=== PATIENT | male | born 1970 | race Caucasian/White ===

== ENCOUNTER 2024-05-19 17:58 | Inpatient (IN) | payer OTHER, SELFPAY ==
[2024-05-19] MEDS ORDERED: ONDANSETRON 4 MG/2 ML VIAL ONE (18:47)
[2024-05-19] MEDS ORDERED: NA CHLORIDE 0.9% 1,000 ML ONE (18:47)
[2024-05-19 19:02] LABS: Absolute Lymphocytes (CBC) 0.5 K/uL (0.7-4.9); Absolute Neutrophil 22.6 K/uL (1.8-8.0); Basophils % 0.1 % (0-1.3); Hematocrit 43.2 % (39.6-49.0); Hemoglobin 14.7 g/dL (13.6-17.9); Lymphocytes % 1.9 % (15.3-44.8); MCH 33.1 pg (27.0-35.0); MCV 97.3 fL (80-100); Monocytes % 4.3 % (3.3-12.3); Neutrophils % 93.7 % (41.7-73.7); Platelets 264 thou/uL (152-406); RBC Red Blood Cell Count 4.44 M/uL (4.33-5.43); Red Cell Distribution Width 13.6 % (12.1-15.2)
[2024-05-19 20:22] LABS: Albumin 2.8 g/dL (3.4-5.0); Albumin/Globulin Ratio 0.8 (1.1-1.8); Anion Gap 11.1 mEq/L (5.0-15.0); Bilirubin Total 0.4 mg/dL (0.2-1.0); Globulin 3.6 g/dL (2.3-3.5); Protein, Total 6.4 g/dL (6.4-8.2)
[2024-05-19 20:32] LABS: Potassium 6.1 mEq/L (3.5-5.1)
[2024-05-19 20:39] LABS: Band Neutrophils 3 % (0-1); Differential Total Cells Count 100; Eosinophils 1 % (0-3); Lymphocytes 2 % (15-42); Monocytes 6 % (0-10); Reactive Lymphocytes 1 %; Segmented Neutrophils 87 % (40-80)
[2024-05-19 20:40] LABS: Blood Morphology Comment NOT SEEN (NOT SEEN); Platelet Estimate ADEQ
[2024-05-19] MEDS ORDERED: ALBUTEROL 2.5 MG/3 ML NEB SOL ONE (21:11)
[2024-05-19] MEDS ORDERED: INSULIN REGULAR (HUMAN) 100 UNIT/ML ONE (21:12)
[2024-05-19] MEDS ORDERED: CALCIUM GLUCONATE 1 GM IVPB 1 GM/50 ML BAG IV ONE (21:12)
[2024-05-19] MEDS ORDERED: D10W 250 ML IV ONE (21:13)
--- NOTE | 2024-05-19 21:15 | RAD REPORT ---
EXAMINATION: CT ABDOMEN AND PELVIS WITHOUT CONTRAST CLINICAL INDICATION: Male, 53 years old.ABD PAIN TECHNIQUE: CT abdomen and pelvis was performed, without IV contrast, as per department protocol. Axia l, sagittal and coronal reconstructions were obtained. One or more of the following dose reduction techniques were used: Automated exposure control, adjustment of the mA and/or kV according to the pat ient size, and/or iterative reconstruction. Unless otherwise specified, incidental findings do not require dedicated imaging follow-up. [id number]. IV CONTRAST: Not administered. COMPARISON: None FINDINGS: The lack of intravenous contrast limits the sensitivity of this exam for evaluation of solid visceral organs, vascular structures, and retroperitoneum. LOWER CHEST: Scarring at the right lung base. Faint groundglass opacities in the left lower lobe. LIVER: Normal in size and contour. No focal lesion. GALLBLADDER/BILE DUCTS: No biliary ductal dilatation.?Corticectomy PANCREAS: No mass, ductal dilation, or nicole-pancreatic fluid. SPLEEN: Normal size. No focal lesion. ADRENALS: Normal; no mass. KIDNEYS AND URETERS: Normal size and contour. No hydronephrosis. URINARY BLADDER: Normal contour. GASTROINTESTINAL TRACT: Ostomy in the left lower quadrant and right lower quadrant. Fluid distended s mall bowel in the lower midline pelvis. No evidence of an overt bowel obstruction. Silva's pouch. PERITONEUM: No free fluid. ABDOMINAL AORTA AND OTHER VESSELS: Normal caliber aorta and IVC. Atherosclerosis. REPRODUCTIVE ORGANS: Mild prostatomegaly. MUSCULOSKELETAL: Surgical of avascular necrosis of the right femoral head. Metallic intensity in the sacrum may be postsurgical or shrapnel. On the turfgrass technician, there is shrapnel in the patient's thorax posteriorly on the right side. ADDITIONAL FINDINGS: None. IMPRESSION: 1. No acute or significant abnormalities in the abdomen or pelvis, with evaluation limited by lack of IV contrast. Some nonspecific fluid distended small bowel is present but no evidence of overt bowel obstruction. Correlate with ostomy output. If bowel obstruction is suspected given the patient' s postoperative state, consider repeat CT with oral and IV contrast. 2. Faint groundglass opacities in left lower lobe could represent mild aspiration pneumonitis in the setting of vomiting.
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
[2024-05-19] MEDS ORDERED: ONDANSETRON 4 MG/2 ML VIAL IV PRN (22:19)
[2024-05-19] MEDS ORDERED: ACETAMINOPHEN 325 MG TABLET PO PRN (22:19)
[2024-05-19] MEDS ORDERED: MORPHINE 2 MG/ML SYR IV PRN (22:22)
[2024-05-19] MEDS ORDERED: HYDROCODONE/APAP 5/325 MG TAB PO PRN (22:22)
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
[2024-05-19] MEDS: NA CHLORIDE 0.9% 1,000 ML IV SCH (23:42)
[2024-05-19] MEDS: SODIUM ZIRCONIUM CYCLOSILICATE 10 GM/PKT PO ONE (23:42)
[2024-05-20] MEDS: PIPER TAZO 3.375 GM in NA CHLORIDE 0.9% 100 ML IV SCH (00:02)
[2024-05-20 00:42] VITALS: BMI 15.2
[2024-05-20 04:39] LABS: Specific Gravity 1.015 (1.005-1.030); Sqamous Epithelial <5 /HPF (None Seen); Urine Bacteria None Seen /HPF (<20); Urine Bilirubin NEGATIVE (Negative); Urine Blood Negative (Negative); Urine Clarity Clear (Clear); Urine Color Light-Yellow (Yellow); Urine Culture Reflex Order NOT NEEDED; Urine Glucose NEGATIVE (Negative); Urine Ketones NEGATIVE (Negative); Urine Microscopic Reflex YN ORDER UMIC; Urine Mucus Slight /HPF (None Seen); Urine Nitrite NEGATIVE (Negative); Urine Protein TRACE (Negative); Urine RBC <5 /HPF (None Seen); Urine Urobilinogen Normal (Normal); Urine WBC <5 /HPF (<5); Urine pH 5.5 (5.0-7.0)
[2024-05-20] MEDS ORDERED: SODIUM CHLORIDE 0.9% 10ML INJ IV PRN (05:59)
[2024-05-20 07:05] LABS: Absolute Eosinophils 0.1 K/uL (0-0.5); Absolute Lymphocytes (CBC) 0.7 K/uL (0.7-4.9); Absolute Monocytes 0.9 K/uL (0.1-1.3); Absolute Neutrophil 14.6 K/uL (1.8-8.0); Eosinophils % 0.3 % (0-4.4); Hematocrit 37.8 % (39.6-49.0); Lymphocytes % 4.4 % (15.3-44.8); MCH 33.3 pg (27.0-35.0); MCHC 34.4 g/dL (32.0-36.0); MCV 96.8 fL (80-100); MPV 8.1 fL (7.6-11.3); Monocytes % 5.6 % (3.3-12.3); Neutrophils % 89.7 % (41.7-73.7); Platelets 235 thou/uL (152-406); Red Cell Distribution Width 13.5 % (12.1-15.2)
[2024-05-20 07:28] LABS: Albumin 2.9 g/dL (3.4-5.0); Albumin/Globulin Ratio 0.8 (1.1-1.8); Anion Gap 12.5 mEq/L (5.0-15.0); Bilirubin Total 0.8 mg/dL (0.2-1.0); Globulin 3.8 g/dL (2.3-3.5); Phosphorus 2.2 mg/dL (2.5-4.9); Potassium 5.5 mEq/L (3.5-5.1); Protein, Total 6.7 g/dL (6.4-8.2)
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
[2024-05-20] MEDS: PANTOPRAZOLE 40 MG INJ IVP SCH (08:01)
[2024-05-20] MEDS: ENOXAPARIN 40 MG/0.4 ML SQ SCH (08:01)
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
[2024-05-20] MEDS ORDERED: D5W 1,000 ML with NA BICARB 8.4% 150 MEQ IV SCH (09:00)
[2024-05-20] MEDS ORDERED: SODIUM BICARB 325 MG TAB PO SCH (09:00)
[2024-05-20] MEDS: SODIUM BICARB 325 MG TAB PO ONE (09:39)
[2024-05-20] MEDS: SODIUM ZIRCONIUM CYCLOSILICATE 10 GM/PKT PO ONE (09:40)
[2024-05-20] MEDS: D5W 1,000 ML with NA BICARB 8.4% 150 MEQ IV SCH (09:40)
[2024-05-20] MEDS: SODIUM PHOSPHATE 15 MM in NA CHLORIDE 0.9% 250 ML IV SCH (09:40)
[2024-05-20] MEDS: NEPRO SHAKE 237 ML CAN PO SCH (09:41)
--- NOTE | 2024-05-20 10:16 | EKG ---
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
[2024-05-20] MEDS: NA CHLORIDE 0.9% 1,000 ML IV ONE (12:08)
[2024-05-20 16:02] LABS: Albumin 2.7 g/dL (3.4-5.0); Anion Gap 11.6 mEq/L (5.0-15.0); Phosphorus 3.2 mg/dL (2.5-4.9)
[2024-05-20 16:03] LABS: Potassium 4.6 mEq/L (3.5-5.1)
[2024-05-21 04:37] LABS: Absolute Eosinophils 0.1 K/uL (0-0.5); Absolute Lymphocytes (CBC) 0.8 K/uL (0.7-4.9); Absolute Monocytes 0.5 K/uL (0.1-1.3); Absolute Neutrophil 6.8 K/uL (1.8-8.0); Basophils % 0.1 % (0-1.3); Eosinophils % 1.2 % (0-4.4); Hematocrit 32.2 % (39.6-49.0); Lymphocytes % 9.7 % (15.3-44.8); MCV 97.1 fL (80-100); MPV 7.7 fL (7.6-11.3); Monocytes % 5.9 % (3.3-12.3); Neutrophils % 83.1 % (41.7-73.7); Platelets 156 thou/uL (152-406); RBC Red Blood Cell Count 3.32 M/uL (4.33-5.43); Red Cell Distribution Width 13.4 % (12.1-15.2)
[2024-05-21 04:50] LABS: Albumin 2.3 g/dL (3.4-5.0); Anion Gap 7.8 mEq/L (5.0-15.0); Potassium 3.8 mEq/L (3.5-5.1); Uric Acid 3.5 mg/dL (3.5-7.2)
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
[2024-05-21] MEDS: POTASS/SODIUM PHOSPHATE 1 PKT POWD.PACK PO SCH ×2 (09:00→15:17)
[2024-05-21] MEDS: CALCITROL 0.25 MCG CAP PO SCH (10:11)
[2024-05-21] MEDS: NA CHLORIDE 0.9% 1,000 ML IV SCH (11:18)
[2024-05-21] MEDS: AMOX/K CLAV 875 MG TAB PO SCH (17:00)
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
--- NOTE | 2024-05-21 19:29 | P.PN ---
Date of Service: 05/21/24 Vital Signs Temp Pulse Resp BP Pulse Ox 98.6 F 78 16 89/53 L 98 05/21/24 16:00 05/21/24 16:00 05/21/24 16:00 05/21/24 16:00 05/21/24 16:00 Medications Acetaminophen (Acetaminophen 325 Mg Tablet) 650 mg PO Q4HP PRN PRN Reason: Pain scale 2-4 (Mild) Hydrocodone Bitart/Acetaminophen (Hydrocodone/Apap 5/325 Mg Tab) 1 tab PO Q4H PRN PRN Reason: Pain scale 5-7 (Moderate) Amoxicillin/Clavulanate Potassium (Amox/K Clav 875 Mg Tab) 875 mg PO BIDWM [facility] Last Admin: 05/21/24 17:00 Dose: Not Given Calcitriol (Calcitrol 0.25 Mcg Cap) 0.5 mcg PO DAILY [facility] Last Admin: 05/21/24 10:11 Dose: 0.5 mcg Enoxaparin Sodium (Enoxaparin 40 Mg/0.4 Ml) 40 mg SQ DAILY [facility] Last Admin: 05/21/24 10:11 Dose: 40 mg Enteral Nutritional Formula (Nepro Shake 237 Ml Can) 240 ml PO TID [facility] Last Admin: 05/21/24 14:00 Dose: Not Given Ergocalciferol (Drisdol (Vitamin D=Ergocalciferol) 33742 Unit Cap) 50,000 unit PO DAILY [facility] Stop: 05/23/24 09:01 Sodium Chloride (Ns 1000 Ml Ivbag) 1,000 mls @ 125 mls/hr IV .Q8H [facility] Last Admin: 05/21/24 11:18 Dose: 1,000 mls Morphine Sulfate (Morphine 2 Mg/Ml Syr) 2 mg IV Q4H PRN PRN Reason: Pain scale 8-10 (Severe) Ondansetron HCl (Ondansetron 4 Mg/2 Ml Vial) 4 mg IV Q6HP PRN PRN Reason: NAUSEA / VOMITING Pantoprazole Sodium (Pantoprazole 40 Mg Inj) 40 mg IVP Q12HR [facility]; Protocol Last Admin: 05/21/24 11:18 Dose: 40 mg Sodium Chloride (Sodium Chloride 0.9% 10ml Inj) 10 ml IV UD PRN PRN Reason: Diluant Assessment/ Plan: Nephrology No dyspnea No chest pain No acute events overnight Vitals, medications, blood work and imaging reviewed in the chart General: Oriented x3, Cooperative, Cachectic HEENT: Atraumatic Neck: Supple Respiratory: Normal air movement Cardiovascular: No edema, Regular rate/rhythm Gastrointestinal: Soft and benign, Non-distended, Other (Ostomy) Musculoskeletal: No clubbing, No contractures Integumentary: No rashes, No cyanosis Neurological: Normal speech Laboratory Data (last 24 hrs) 05/19/24 05/19/24 19:38 18:45 WBC 24.20 H Hgb 14.7 Hct 43.2 Plt Count 264 Sodium 124 L Potassium 6.1 H* BUN 32 H Creatinine 1.83 H Glucose 104 Total Bilirubin 0.4 AST 28 ALT 38 Alkaline Phosphatase 83 Lipase 86 H Imagings Data: CT Abd/ Pelvis reviewed. Mild prostatomegaly. Atherosclerosis of aorta. Conclusions/Impression: 53 yo WM smoker admitted with multiple electrolyte abn in the setting of short bowel syndrome Stage I or II JEFFERSON in the setting of hypovolemia suspected CKD III suspected -Continue IVF with NS Hyponatremia -Continue IVF -Encourage nutrition as tolerated Hypokalemia -Lokelma prn Metabolic Acidosis -Start oral bicarb Hypophosphatemia -Encourage nutrition as tolerated -Replete prn Hypotension -Continue IVF Hypoalbuminemia -IV Albumin prn -Start Ensure Cigarette Smoker -Recommend cessation Hospitalist note reviewed
[2024-05-21] MEDS: ENSURE MAX PROTEIN 330 ML LIQUID PO ONE (21:15)
[2024-05-22 06:05] LABS: Phosphorus 1.5 mg/dL (2.5-4.9)
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
[2024-05-22] MEDS: ENSURE MAX PROTEIN 330 ML LIQUID PO SCH (09:00)
[2024-05-22] MEDS: POTASS/SODIUM PHOSPHATE 1 PKT POWD.PACK PO SCH ×2 (09:00→11:42)
[2024-05-22] MEDS ORDERED: DIPHENOX/ATROP SULF 1 TAB PO SCH (09:00)
[2024-05-22] MEDS: CHOLESTYRAMINE/ASP 4 GM/PKT PO SCH (09:20)
[2024-05-22] MEDS: MULTIVITAMIN TAB PO SCH (09:22)
[2024-05-22] MEDS: DRISDOL (VITAMIN D=ERGOCALCIFEROL) 50000 UNIT CAP PO SCH (09:22)
[2024-05-22] MEDS: LOPERAMIDE HCL 2 MG CAPSULE PO SCH (09:22)
[2024-05-22] MEDS: SODIUM BICARB 325 MG TAB PO SCH (09:22)
[2024-05-22 09:28] LABS: Percent Reticulocyte Count 1.13 % (0.4-2.05); RBC Red Blood Cell Count 3.33 M/uL (4.33-5.43)
[2024-05-22] MEDS: POTASSIUM 25 MEQ EFFERV TAB PO SCH (09:35)
[2024-05-22] MEDS: DIPHENOX/ATROP SULF 1 TAB PO ONE (17:14)
[2024-05-22] MEDS: NA CHLORIDE 0.9% 500 ML IV ONE (17:14)
[2024-05-22] MEDS: POTASSIUM PHOS 30 MM in NA CHLORIDE 0.9% 500 ML IV ONE (17:33)
[2024-05-22] MEDS ORDERED: WATER FOR INJ,STERILE 10 ML IV SCH (19:00)
[2024-05-22] MEDS: ALBUMIN HUMAN 25% 100 ML IV ONE (20:52)
[2024-05-22] MEDS: HYDROCORTISONE SUC 100 MG INJ IV SCH (20:53)
[2024-05-22] MEDS: WATER FOR INJ,STERILE 10 ML IV SCH (20:54)
--- NOTE | 2024-05-22 21:12 | P.PN ---
Date of Service: 05/22/24 Vital Signs Temp Pulse Resp BP Pulse Ox 99.6 F 77 14 85/53 L 95 05/22/24 16:00 05/22/24 16:00 05/22/24 16:00 05/22/24 18:52 05/22/24 16:00 Medications Acetaminophen (Acetaminophen 325 Mg Tablet) 650 mg PO Q4HP PRN PRN Reason: Pain scale 2-4 (Mild) Hydrocodone Bitart/Acetaminophen (Hydrocodone/Apap 5/325 Mg Tab) 1 tab PO Q4H PRN PRN Reason: Pain scale 5-7 (Moderate) Calcitriol (Calcitrol 0.25 Mcg Cap) 0.5 mcg PO DAILY [facility] Last Admin: 05/22/24 09:22 Dose: 0.5 mcg Cholestyramine Resin (Cholestyramine/Asp 4 Gm/Pkt) 4 gm PO BIDWM [facility] Last Admin: 05/22/24 16:32 Dose: Not Given Enoxaparin Sodium (Enoxaparin 40 Mg/0.4 Ml) 40 mg SQ DAILY [facility] Last Admin: 05/22/24 09:20 Dose: 40 mg Ergocalciferol (Drisdol (Vitamin D=Ergocalciferol) 15976 Unit Cap) 50,000 unit PO DAILY [facility] Stop: 05/23/24 09:01 Last Admin: 05/22/24 09:22 Dose: 50,000 unit Hydrocortisone Sodium Succinate (Hydrocortisone Suc 100 Mg Inj) 50 mg IV Q8H [facility] Last Admin: 05/22/24 20:53 Dose: 50 mg Sodium Chloride (Ns 1000 Ml Ivbag) 1,000 mls @ 125 mls/hr IV .Q8H [facility] Last Admin: 05/22/24 20:52 Dose: 1,000 mls Potassium Phosphate 30 mm/ (Sodium Chloride) 500 mls @ 100 mls/hr IV 1X ONE; Protocol Stop: 05/22/24 22:07 Last Admin: 05/22/24 17:33 Dose: 500 mls Loperamide HCl (Loperamide Hcl 2 Mg Capsule) 2 mg PO Q6H [facility] Last Admin: 05/22/24 20:54 Dose: 2 mg Morphine Sulfate (Morphine 2 Mg/Ml Syr) 2 mg IV Q4H PRN PRN Reason: Pain scale 8-10 (Severe) Multivitamins/Minerals (Multivitamin Tab) 1 tab PO DAILY [facility] Last Admin: 05/22/24 09:22 Dose: 1 tab Ondansetron HCl (Ondansetron 4 Mg/2 Ml Vial) 4 mg IV Q6HP PRN PRN Reason: NAUSEA / VOMITING Pantoprazole Sodium (Pantoprazole 40 Mg Inj) 40 mg IVP Q12HR [facility]; Protocol Last Admin: 05/22/24 20:53 Dose: 40 mg Protein (Ensure Max Protein 330 Ml Liquid) 240 ml PO TID [facility] Last Admin: 05/22/24 20:56 Dose: 240 ml Sodium Bicarbonate (Sodium Bicarb 325 Mg Tab) 650 mg PO TIDWM [facility] Last Admin: 05/22/24 16:38 Dose: 650 mg Sodium Chloride (Sodium Chloride 0.9% 10ml Inj) 10 ml IV UD PRN PRN Reason: Diluant Sterile Water (Water For Inj,Sterile 10 Ml) 2 ml IV Q8H [facility] Last Admin: 05/22/24 20:54 Dose: 2 ml Assessment/ Plan: Nephrology No dyspnea No chest pain No acute events overnight Vitals, medications, blood work and imaging reviewed in the chart General: Oriented x3, Cooperative, Cachectic HEENT: Atraumatic Neck: Supple Respiratory: Normal air movement Cardiovascular: No edema, Regular rate/rhythm Gastrointestinal: Soft and benign, Non-distended, Other (Ostomy) Musculoskeletal: No clubbing, No contractures Integumentary: No rashes, No cyanosis Neurological: Normal speech Laboratory Data (last 24 hrs) 05/19/24 05/19/24 19:38 18:45 WBC 24.20 H Hgb 14.7 Hct 43.2 Plt Count 264 Sodium 124 L Potassium 6.1 H* BUN 32 H Creatinine 1.83 H Glucose 104 Total Bilirubin 0.4 AST 28 ALT 38 Alkaline Phosphatase 83 Lipase 86 H Imagings Data: CT Abd/ Pelvis reviewed. Mild prostatomegaly. Atherosclerosis of aorta. Conclusions/Impression: 53 yo WM smoker admitted with multiple electrolyte abn in the setting of short bowel syndrome Stage I or II JEFFERSON in the setting of hypovolemia suspected CKD III suspected -Continue IVF with NS Hyponatremia -Continue IVF -Encourage nutrition as tolerated Hyperkalemia resolved Hypokalemia -Replete as ordered Metabolic Acidosis -Continue oral bicarb Hypophosphatemia -Encourage nutrition as tolerated -Replete as ordered Hypotension -Continue IVF -Agree with hydrocortisone Hypoalbuminemia -IV Albumin prn -Continue Ensure Cigarette Smoker -Recommend cessation Case reviewed with hospitalist team Hospitalist note reviewed
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
[2024-05-23] MEDS: MIDODRINE HCL 5 MG TABLET PO SCH (05:47)
[2024-05-23] MEDS: NA CHLORIDE 0.9% 1,000 ML IV SCH (05:47)
[2024-05-23 06:01] LABS: Absolute Lymphocytes (CBC) 0.4 K/uL (0.7-4.9); Absolute Monocytes 0.2 K/uL (0.1-1.3); Absolute Neutrophil 4.7 K/uL (1.8-8.0); Basophils % 0.1 % (0-1.3); Eosinophils % 0.2 % (0-4.4); Hematocrit 28.1 % (39.6-49.0); Hemoglobin 9.6 g/dL (13.6-17.9); Lymphocytes % 6.7 % (15.3-44.8); MCH 33.4 pg (27.0-35.0); MCHC 34.2 g/dL (32.0-36.0); MCV 97.5 fL (80-100); Monocytes % 3.7 % (3.3-12.3); Neutrophils % 89.3 % (41.7-73.7); Nucleated Red Blood Cells % 0.1 % (0-0); Platelets 161 thou/uL (152-406); RBC Red Blood Cell Count 2.89 M/uL (4.33-5.43); Red Cell Distribution Width 13.6 % (12.1-15.2)
[2024-05-23 06:17] LABS: Albumin 2.3 g/dL (3.4-5.0); Anion Gap 7.6 mEq/L (5.0-15.0); Magnesium 1.4 mg/dL (1.6-2.4); Phosphorus 2.2 mg/dL (2.5-4.9); Potassium 3.6 mEq/L (3.5-5.1)
[2024-05-23] MEDS: LOPERAMIDE HCL 2 MG CAPSULE PO SCH (08:00)
[2024-05-23 08:22] LABS: Blood Morphology Comment NOT SEEN (NOT SEEN); Platelet Estimate ADEQ; White Blood Cell Scan OK (OK)
[2024-05-23] MEDS: POTASSIUM 25 MEQ EFFERV TAB FT ONE (12:00)
[2024-05-23] MEDS: POTASS/SODIUM PHOSPHATE 1 PKT POWD.PACK PO SCH (13:54)
[2024-05-23] MEDS: Magnesium Sulfate 2gm IVPB 2 G/50 ML BAG IV ONE (19:43)
[2024-05-23] MEDS: MAGNESIUM CHLORIDE 64 MG TAB PO SCH (20:45)
--- NOTE | 2024-05-23 23:17 | P.PN ---
Date of Service: 05/23/24 Vital Signs Temp Pulse Resp BP Pulse Ox 97.4 F 79 22 H 105/62 100 05/23/24 20:00 05/23/24 20:00 05/23/24 20:00 05/23/24 20:00 05/23/24 20:00 Medications Acetaminophen (Acetaminophen 325 Mg Tablet) 650 mg PO Q4HP PRN PRN Reason: Pain scale 2-4 (Mild) Hydrocodone Bitart/Acetaminophen (Hydrocodone/Apap 5/325 Mg Tab) 1 tab PO Q4H PRN PRN Reason: Pain scale 5-7 (Moderate) Calcitriol (Calcitrol 0.25 Mcg Cap) 0.5 mcg PO DAILY [facility] Last Admin: 05/23/24 09:14 Dose: 0.5 mcg Cholestyramine Resin (Cholestyramine/Asp 4 Gm/Pkt) 4 gm PO BIDWM [facility] Last Admin: 05/23/24 17:39 Dose: 4 gm Enoxaparin Sodium (Enoxaparin 40 Mg/0.4 Ml) 40 mg SQ DAILY [facility] Last Admin: 05/23/24 09:14 Dose: 40 mg Hydrocortisone Sodium Succinate (Hydrocortisone Suc 100 Mg Inj) 50 mg IV Q8H [facility] Last Admin: 05/23/24 19:43 Dose: 50 mg Sodium Chloride (Ns 1000 Ml Ivbag) 1,000 mls @ 125 mls/hr IV .Q8H [facility] Last Admin: 05/22/24 20:52 Dose: 1,000 mls Loperamide HCl (Loperamide Hcl 2 Mg Capsule) 2 mg PO Q4H [facility] Last Admin: 05/23/24 19:44 Dose: Not Given Magnesium Chloride (Magnesium Chloride 64 Mg Tab) 128 mg PO BID [facility] Last Admin: 05/23/24 20:45 Dose: 128 mg Midodrine (Midodrine Hcl 5 Mg Tablet) 5 mg PO TID [facility] Last Admin: 05/23/24 20:45 Dose: 5 mg Morphine Sulfate (Morphine 2 Mg/Ml Syr) 2 mg IV Q4H PRN PRN Reason: Pain scale 8-10 (Severe) Multivitamins/Minerals (Multivitamin Tab) 1 tab PO DAILY [facility] Last Admin: 05/23/24 09:14 Dose: 1 tab Ondansetron HCl (Ondansetron 4 Mg/2 Ml Vial) 4 mg IV Q6HP PRN PRN Reason: NAUSEA / VOMITING Pantoprazole Sodium (Pantoprazole 40 Mg Inj) 40 mg IVP Q12HR [facility]; Protocol Last Admin: 05/23/24 20:45 Dose: 40 mg Potassium Phos/Sodium Phos (Potass/Sodium Phosphate 1 Pkt Powd.Pack) 2 pkt PO TID [facility] Last Admin: 05/23/24 20:45 Dose: 2 pkt Protein (Ensure Max Protein 330 Ml Liquid) 240 ml PO TID [facility] Last Admin: 05/23/24 20:45 Dose: 240 ml Sodium Bicarbonate (Sodium Bicarb 325 Mg Tab) 650 mg PO TIDWM [facility] Last Admin: 05/23/24 17:39 Dose: 650 mg Sodium Chloride (Sodium Chloride 0.9% 10ml Inj) 10 ml IV UD PRN PRN Reason: Diluant Sterile Water (Water For Inj,Sterile 10 Ml) 2 ml IV Q8H [facility] Last Admin: 05/23/24 19:00 Dose: Not Given Assessment/ Plan: Nephrology No dyspnea No chest pain No acute events overnight Vitals, medications, blood work and imaging reviewed in the chart General: Oriented x3, Cooperative, Cachectic HEENT: Atraumatic Neck: Supple Respiratory: Normal air movement Cardiovascular: No edema, Regular rate/rhythm Gastrointestinal: Soft and benign, Non-distended, Other (Ostomy) Musculoskeletal: No clubbing, No contractures Integumentary: No rashes, No cyanosis Neurological: Normal speech Laboratory Data (last 24 hrs) 05/19/24 05/19/24 19:38 18:45 WBC 24.20 H Hgb 14.7 Hct 43.2 Plt Count 264 Sodium 124 L Potassium 6.1 H* BUN 32 H Creatinine 1.83 H Glucose 104 Total Bilirubin 0.4 AST 28 ALT 38 Alkaline Phosphatase 83 Lipase 86 H Imagings Data: CT Abd/ Pelvis reviewed. Mild prostatomegaly. Atherosclerosis of aorta. Conclusions/Impression: 53 yo WM smoker admitted with multiple electrolyte abn in the setting of short bowel syndrome Stage I or II JEFFERSON in the setting of hypovolemia suspected CKD II -Continue IVF with NS Hyponatremia -Continue IVF -Encourage nutrition as tolerated Hyperkalemia resolved Hypokalemia -Replete as ordered Metabolic Acidosis -Continue oral bicarb Hypophosphatemia -Encourage nutrition as tolerated -Replete as ordered Hypotension -Continue IVF -Continue Midodrine -Continue hydrocortisone Hypoalbuminemia -IV Albumin prn -Continue Ensure Cigarette Smoker -Recommend cessation Case reviewed with hospitalist team Hospitalist note reviewed
[2024-05-24 06:00] LABS: Absolute Lymphocytes (CBC) 0.5 K/uL (0.7-4.9); Absolute Monocytes 0.2 K/uL (0.1-1.3); Absolute Neutrophil 6.6 K/uL (1.8-8.0); Basophils % 0.2 % (0-1.3); Eosinophils % 0.1 % (0-4.4); Hematocrit 28.7 % (39.6-49.0); Hemoglobin 9.9 g/dL (13.6-17.9); Lymphocytes % 7.1 % (15.3-44.8); MCH 33.9 pg (27.0-35.0); MCHC 34.5 g/dL (32.0-36.0); MCV 98.4 fL (80-100); Monocytes % 3.2 % (3.3-12.3); Neutrophils % 89.4 % (41.7-73.7); Platelets 153 thou/uL (152-406); RBC Red Blood Cell Count 2.92 M/uL (4.33-5.43); Red Cell Distribution Width 13.9 % (12.1-15.2)
[2024-05-24 06:19] LABS: Albumin 2.4 g/dL (3.4-5.0); Anion Gap 6.5 mEq/L (5.0-15.0); Magnesium 2.1 mg/dL (1.6-2.4); Potassium 4.5 mEq/L (3.5-5.1)
[2024-05-24 06:29] LABS: Phosphorus 1.4 mg/dL (2.5-4.9)
[2024-05-24] MEDS: NA CHLORIDE 0.9% 1,000 ML IV SCH (10:48)
[2024-05-24] MEDS: POTASS/SODIUM PHOSPHATE 1 PKT POWD.PACK PO SCH ×2 (14:00→20:08)
--- NOTE | 2024-05-24 16:44 | P.PN ---
(S) Pt reports feeling better, has chronic hx of high ostomy output and electrolyte disturbances, does not follow strict diet, drinks lots of sodas (O) vitals reviewed in the EMR General: Chronically ill appearing, Cachectic HEENT: Atraumatic, sclera anicteric, not on O2 Neck: Supple Respiratory: Normal air movement, no wheezing Cardiovascular: No edema, Regular rate/rhythm Gastrointestinal: Soft, ND, surgical scars, left stoma, Rt ostomy Musculoskeletal: muscle mass loss Integumentary: No rashes Neurological: Normal speech, alert Laboratory Data (last 24 hrs) Reviewed in the EMR Conclusions/Impression: Stage I JEFFERSON 2nd to vol depletion, pre-renal azotemia -Largely resolved, NS IVF rate lowered, d/c soon Hyponatremia 2nd to hypovolemia, ostomy losses -Corrected on isotonic IVF Hyperkalemia -2nd to vol depletion/JEFFERSON/loss of colonic K excretion/K supplementation by pt Metab acidosis, acute on chronic -Pt should be sodium bicarb as OP High output ostomy, chronic -Recommend clinical research nurse coordinator consult +/- gen surgery to day camp counselor/educate pt on diet and fluid intake patterns and other measures to help lower volume and bulk stool
[2024-05-25 06:00] LABS: Absolute Lymphocytes (CBC) 0.8 K/uL (0.7-4.9); Absolute Monocytes 0.3 K/uL (0.1-1.3); Absolute Neutrophil 7.1 K/uL (1.8-8.0); Eosinophils % 0.2 % (0-4.4); Hematocrit 27.8 % (39.6-49.0); Hemoglobin 9.6 g/dL (13.6-17.9); Lymphocytes % 10.1 % (15.3-44.8); MCH 33.8 pg (27.0-35.0); MCHC 34.4 g/dL (32.0-36.0); MCV 98.2 fL (80-100); MPV 7.9 fL (7.6-11.3); Monocytes % 3.9 % (3.3-12.3); Neutrophils % 85.8 % (41.7-73.7); Platelets 169 thou/uL (152-406); RBC Red Blood Cell Count 2.83 M/uL (4.33-5.43)
[2024-05-25 06:25] LABS: Albumin 2.2 g/dL (3.4-5.0); Anion Gap 6.7 mEq/L (5.0-15.0); Magnesium 1.7 mg/dL (1.6-2.4); Phosphorus 1.8 mg/dL (2.5-4.9); Potassium 4.7 mEq/L (3.5-5.1)
[2024-05-25] MEDS: SODIUM BICARB 325 MG TAB PO SCH (09:54)
[2024-05-25] MEDS: POTASS/SODIUM PHOSPHATE 1 PKT POWD.PACK PO SCH (10:00)
[2024-05-25] MEDS ORDERED: DIPHENOX/ATROP SULF 1 TAB PO PRN (12:40)
[2024-05-25] MEDS: POTASS/SODIUM PHOSPHATE 1 PKT POWD.PACK PO ONE (14:42)
[2024-05-25] MEDS: DIPHENOX/ATROP SULF 1 TAB PO SCH (14:42)
[2024-05-25] MEDS: CHOLESTYRAMINE/ASP 4 GM/PKT PO SCH (16:57)
[2024-05-26 05:44] LABS: Absolute Eosinophils 0.1 K/uL (0-0.5); Absolute Lymphocytes (CBC) 1.8 K/uL (0.7-4.9); Absolute Monocytes 0.4 K/uL (0.1-1.3); Absolute Neutrophil 5.8 K/uL (1.8-8.0); Basophils % 0.3 % (0-1.3); Eosinophils % 0.9 % (0-4.4); Hematocrit 29.3 % (39.6-49.0); Hemoglobin 10.1 g/dL (13.6-17.9); Lymphocytes % 22.3 % (15.3-44.8); MCH 33.9 pg (27.0-35.0); MCHC 34.4 g/dL (32.0-36.0); MCV 98.7 fL (80-100); MPV 7.7 fL (7.6-11.3); Monocytes % 4.7 % (3.3-12.3); Neutrophils % 71.8 % (41.7-73.7); Nucleated Red Blood Cells % 0.1 % (0-0); Platelets 164 thou/uL (152-406); RBC Red Blood Cell Count 2.97 M/uL (4.33-5.43); Red Cell Distribution Width 14.2 % (12.1-15.2)
[2024-05-26 05:55] LABS: Albumin 2.1 g/dL (3.4-5.0); Anion Gap 7.1 mEq/L (5.0-15.0); Magnesium 1.5 mg/dL (1.6-2.4); Phosphorus 2.3 mg/dL (2.5-4.9); Potassium 4.1 mEq/L (3.5-5.1)
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
[2024-05-26] MEDS: dexAMETHasone 4 MG TAB PO SCH (09:32)
[2024-05-26] MEDS: Magnesium Sulfate 2gm IVPB 2 G/50 ML BAG IV SCH (12:50)
[2024-05-26] MEDS: POTASS/SODIUM PHOSPHATE 1 PKT POWD.PACK PO SCH (12:50)
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
[2024-05-26] MEDS: LACTOBACILLUS/ACIDOPHILUS TAB PO SCH (17:17)
[2024-05-26 20:59] VITALS: O2SAT 99
[2024-05-27] MEDS: POTASS/SODIUM PHOSPHATE 1 PKT POWD.PACK PO SCH (08:00)
[2024-05-27 08:47] VITALS: BP 91/55; TEMP 97.6
[2024-05-27] MEDS: Magnesium Sulfate 2gm IVPB 2 G/50 ML BAG IV ONE (09:32)
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
== END 2024-05-27 11:20 | disposition home or self-care (01) | DRG 871 ==
LOC: ER 17:58 → INTOOBSV 22:19 → OBSVTOIN 22:19 → ERHOLD 22:19 → 2ND 22:37
PROVIDERS: ADMIT Family Medicine; ATTEND Hospitalist
DX: A41.9 Sepsis, unspecified organism (principal); J69.0 Pneumonitis due to inhalation of food and vomit; R65.21 Severe sepsis with septic shock; J96.01 Acute respiratory failure with hypoxia; E87.21 Acute metabolic acidosis; K90.829 Short bowel syndrome, unspecified; R64 Cachexia; E87.1 Hypo-osmolality and hyponatremia; N17.9 Acute kidney failure, unspecified; Z68.1 Body mass index [BMI] 19.9 or less, adult; E83.39 Other disorders of phosphorus metabolism; E86.0 Dehydration; N18.30 Chronic kidney disease, stage 3 unspecified; E87.5 Hyperkalemia; G62.9 Polyneuropathy, unspecified; F17.210 Nicotine dependence, cigarettes, uncomplicated; E86.1 Hypovolemia; R53.1 Weakness; R26.81 Unsteadiness on feet; Z93.2 Ileostomy status; Z93.3 Colostomy status; Z90.49 Acquired absence of other specified parts of digestive tract; Z87.828 Personal history of other (healed) physical injury and trauma
CPT/HCPCS: 36415; 71046; 74176; 80048; 80053; 80069; 81001; 82306; 82607; 83090; 83690; 83735; 84100; 84550; 85025; 85044; 93005; 94760; 96361; 96365; 96375; 99285; J0612; J1650; J1720; J2405; J2470; J2543; J3475; J7030; J7040; J7050; J7613; J8540; P9047